=== PATIENT | male | born 2000 | race Caucasian/White ===

== ENCOUNTER 2021-05-10 16:41 | Inpatient (IN) | payer OTHER ==
[~2021-05-10] VITALS: Ht 182.9 cm; Wt 81.4 kg
[2021-05-10] MEDS ORDERED: HYDR-3363 PO (16:54)
[2021-05-10 17:33] LABS: HEMATOCRIT 43.2 % (42.0-52.0); HEMOGLOBIN 14.5 g/dl (13.5-17.5); MEAN CORPUSCULAR HEMOGLOBIN 27.4 pg (27.0-33.0); MEAN CORPUSCULAR HGB CONC 33.6 g/dl (32.0-36.5); MEAN CORPUSCULAR VOLUME 81.7 fl (80.0-96.0); PLATELET COUNT, AUTOMATED 323 10^3/uL (150-450); RED BLOOD COUNT 5.29 10^6/uL (4.30-6.10); WHITE BLOOD COUNT 12.2 10^3/uL (4.0-10.0)
[2021-05-10 18:13] LABS: ACETAMINOPHEN LEVEL < 2.0 UG/ML (10.0-30.0); ALT/SGPT 30 U/L (12-78); BILIRUBIN,DIRECT 0.1 MG/DL (0.0-0.2); BILIRUBIN,TOTAL 0.3 MG/DL (0.2-1.0); BLOOD UREA NITROGEN 11 MG/DL (7-18); CARBON DIOXIDE LEVEL 29 MEQ/L (21-32); CHLORIDE LEVEL 104 MEQ/L (98-107); CREATININE FOR GFR 0.86 MG/DL (0.70-1.30); ETHYL ALCOHOL (ETHANOL) 0.005 % (0.000-0.010); GLUCOSE, FASTING 91 MG/DL (70-100); POTASSIUM SERUM 4.3 MEQ/L (3.5-5.1); SALICYLATE LEVEL < 1.7 MG/DL (5.0-30.0); SODIUM LEVEL 138 MEQ/L (136-145)
[2021-05-10 18:43] LABS: AMPHETAMINES LEVEL URINE NEGATIVE (NEGATIVE); BARBITURATES URINE NEGATIVE (NEGATIVE); BENZODIAZEPINES URINE NEGATIVE (NEGATIVE); CANNABINOIDS URINE NEGATIVE (NEGATIVE); COCAINE METABOLITE URINE NEGATIVE (NEGATIVE); METHADONE URINE NEGATIVE (NEGATIVE); OPIATES URINE NEGATIVE (NEGATIVE); PHENCYCLIDINE URINE NEGATIVE (NEGATIVE)
[2021-05-10] MEDS ORDERED: HYDR1CAP25 PO (20:21)
[2021-05-10] MEDS ORDERED: hydrOXYzine 25 MG TAB PO PRN (22:30)
[2021-05-10] MEDS ORDERED: ACETAMINOPHEN TAB 650MG DOSE (2X325MG) PO PRN (22:30)
[2021-05-10] MEDS ORDERED: MOM 30ML SUSPENSION UDC PO PRN (22:30)
[2021-05-10] MEDS ORDERED: MAALOX 30 ML SUSP *UDC PO PRN (22:30)
[2021-05-10] MEDS ORDERED: traZODone 50 MG TAB PO PRN (22:30)
[2021-05-10 23:06] VITALS: BP 124/60
[2021-05-11 06:00] VITALS: BP 132/60
[2021-05-11] MEDS: NICOTINE 21MG/24HR 1 EA TRANSDERMAL TD SCH (09:00)
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
--- NOTE | 2021-05-11 12:46 | HPEPDOC ---
General Date of Admission May 10, 2021 at 16:42 Date of Service: May 11, 2021 Chief Complaint The patient is a 20-year-old male admitted with a reason for visit of Unspecified Mood Disorder. 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 He is being examined today for medical history and physical. He had recent COVID infection and came off quarantine today. He complains of some cough and sore throat and feels some heaviness of breathing when doing physical exertion which alll started with the COVID infection but says is slowly getting better. Home Medications Scheduled PRN Hydroxyzine Pamoate (Hydroxyzine Pamoate) 25 Mg Capsule, 25 MG PO QHS PRN for ANXIETY, (Reported) Allergies Coded Allergies: No Known Allergies (Unverified , 05/10/21) Past Medical History Medical History Recent COVID infection on 05/01/21 Surgical History wisdom tooth extraction Family History Patient is adapted. Social History * Smoker: other (vape) Alcohol: Denies Drugs: denies A-FIB/CHADSVASC A-FIB History Current/History of A-Fib/PAF?: No Age/Risk Factor Scoring CHADSVASC: CHADSVASC Response (Comments) Value Gender Risk Factor Male 0 Hx of CHF No 0 Hx of HTN No 0 Hx of Stroke/TIA/or VTE No 0 Hx of Diabetes No 0 Hx of Vascular Disease No 0 Total 0 Review of Systems Constitutional: Denies: Chills, Fever, Night Sweats Eyes: Denies: Pain, Vision change ENT: Denies: Head Aches, Ear Pain, Dysphagia Skin: Denies: Rash, Lesions, Breakdown Pulmonary: Reports: Dyspnea, Cough Cardiovascular: Denies: Chest Pain, Palpitations, Orthopnea, Paroxysmal Noc. Dyspnea, Lt Headedness Gastrointestinal: Denies: Nausea, Vomiting, Abdominal Pain, Diarrhea Genitourinary: Denies: Dysuria, Frequency, Incontinence, Retention Hematologic: Denies: Bruising, Bleeding Excessively Physical Examination General Exam: Positive: Alert, Cooperative, No Acute Distress Eye Exam: Positive: PERRLA, Conjunctiva & lids normal, EOMI; Negative: Sclera icteric ENT Exam: Positive: Atraumatic, Mucous membr. moist/pink, Pharynx Normal Neck Exam: Positive: Supple; Negative: JVD, thyromegaly Chest Exam: Positive: Clear to auscultation, Normal air movement Heart Exam: Positive: Rate Normal, Regular Rhythm, Normal S1, Normal S2; Negative: Murmurs, Rubs Abdomen Exam: Positive: Normal bowel sounds, Soft; Negative: Tenderness, Hepatospenomegaly Extremity Exam: Positive: Normal pulses; Negative: Clubbing, Cyanosis, Edema Vital Signs Vital Signs Date Time Temp Pulse Resp B/P (MAP) Pulse Ox O2 Delivery O2 Flow Rate FiO2 05/11/21 06:00 97.7 95 18 132/60 (84) 97 05/10/21 23:06 Room Air Laboratory Data Labs 24H Laboratory Tests 2 05/10/21 17:22: Nucleated Red Blood Cells % (auto) 0.0, Anion Gap 5L, Calcium Level 9.0, Total Bilirubin 0.3, Direct Bilirubin 0.1, Aspartate Amino Transf (AST/SGOT) 25, Alanine Aminotransferase (ALT/SGPT) 30, Alkaline Phosphatase 116, Total Protein 8.0, Albumin 4.0, Albumin/Globulin Ratio 1.0, Thyroid Stimulating Hormone (TSH) 2.660, Salicylates Level < 1.7L, Acetaminophen Level < 2.0L, Ethyl Alcohol Level 0.005 05/10/21 17:57: Urine Opiates Screen NEGATIVE, Urine Methadone Screen NEGATIVE, Urine Barbiturates Screen NEGATIVE, Urine Phencyclidine Screen NEGATIVE, Urine Ampheta mines Screen NEGATIVE, Urine Benzodiazepines Screen NEGATIVE, Urine Cocaine Metabolite Screen NEGATIVE, Urine Cannabinoids Screen NEGATIVE CBC/BMP Laboratory Tests 05/10/21 17:22 Assessment/Plan 20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 He is being examined today for medical history and physical. Psychotic disorder as per Psychiatrist Recent COVID infection off quarantine No resp signs seen though still feels symptomatically dyspneic. No hypoxia. No active medical issues at this time. Plan / VTE VTE Prophylaxis Ordered?: No (Freely ambulatory) MIRELLA GARCIA MD May 11, 2021 12:46
[2021-05-11 16:02] VITALS: BP 138/87
[2021-05-11] MEDS: traZODone 50 MG TAB PO SCH (20:09)
[2021-05-12 06:10] VITALS: BP 138/82
[2021-05-12] MEDS: NICOTINE 21MG/24HR 1 EA TRANSDERMAL TD SCH (08:11)
[2021-05-12 16:33] VITALS: BP 134/90
[2021-05-12] MEDS: traZODone 50 MG TAB PO SCH (21:01)
[2021-05-13 06:20] VITALS: BP 121/60
[2021-05-13] MEDS: NICOTINE 21MG/24HR 1 EA TRANSDERMAL TD SCH (09:04)
[2021-05-13 16:45] VITALS: BP 139/80
[2021-05-13] MEDS: traZODone 50 MG TAB PO SCH (21:47)
[2021-05-14 07:04] VITALS: BP 150/99
--- NOTE | 2021-05-14 08:51 | MHIPN ---
[facility] PROGRESS NOTE DATE: 05/12/2021 VITAL SIGNS: Blood pressure 138/82, pulse 83, temperature 98.9. This is a video assessment, I am at home, he is at the inpatient psychiatry unit, he is seen in the presence of staff. CHIEF COMPLAINT: Feels a bit better. SUBJECTIVE: Seen for followup. Indicates has been feeling a bit better, and feels somewhat more rested, says sleep is improving. Appetite is okay. Moods are a bit improved, less anxious, less depressed. Spoke about what he has been experiencing, particularly since he found out that his grandmother, who he was very close to, was ill, this November, and she in January, was in her mid 80s, this was followed by the patient's 17-year-old sister getting in her car accident. Things have been increasingly difficult for him, but feels is getting better. MENTAL STATUS EXAMINATION: Neat, cooperative, no agitation, no psychomotor retardation, he is coherent, affect is fairly broad, denies any suicidal thoughts or intents, no homicidal ideals or intents, currently no evidence of any psychosis, cognition is grossly intact, judgment and insight possibly somewhat improved. ASSESSMENT: Adjustment disorder with anxiety and depression. The differential would tend to include a depressive disorder, given the length of time as well. PLAN: Continue current care, and agree on holding off on advocating for an antidepressant. The need, at this point, is not imperative, and this can always be reassessed. He is to be encouraged to participate in activities in the unit. Further recommendations will be made depending on the clinical picture.
[2021-05-14] MEDS: NICOTINE 21MG/24HR 1 EA TRANSDERMAL TD SCH (09:00)
--- NOTE | 2021-05-14 10:52 | MHIPN ---
[facility] PROGRESS NOTE DATE: 05/13/2021 VITAL SIGNS: Blood pressure 121/60, pulse 64, temperature 97.9. This is a video assessment, he is at the hospital, he is seen in the presence of staff, I am at home. CHIEF COMPLAINT: Says feels better. SUBJECTIVE: Seen for followup. Indicates has been feeling better, and that he slept well. Moods are improved, he feels less anxious. Appetite is okay. MENTAL STATUS EXAMINATION: Neat, cooperative, no agitation, no psychomotor retardation, he is coherent, affect reactive, appears mildly anxious. He denies any thoughts of harming himself or anyone else, no evidence of any psychosis. Cognition grossly intact, his judgment and insight are improved. ASSESSMENT: Other specified depressive disorder versus adjustment disorder with depressed mood. PLAN: Continue current care, observations, will hold off on any scheduled psychotropic, such as an antidepressant. Encourage participation in activities in the unit. He inquired about attending outpatient care at the [facility], and I would suggest that that is explored through [facility]. [facility] Outpatient has seen active duty personnel in the past, I am not sure of its current status, but that can certainly be explored. He will be seeing the assigned clinicians tomorrow.
--- NOTE | 2021-05-14 11:07 | MHDSPDOC ---
[facility] Discharge Summary Discharge Summary DATE OF ADMISSION: May 10, 2021 at 16:42 DATE OF DISCHARGE: 05/14/2021 DISCHARGE DIAGNOSES: 1. . Adjustment disorder with the mixed emotion 2. . REASON FOR ADMISSION: 20-year-old, , admitted due to increasing depression following recent deaths of her grandmother and sister. Patient reports being preoccupied with the images of all the time and was feeling quite anxious, depressed, but denied any suicidal thoughts. CONSULTANTS INVOLVED: TREATMENT AND PROGRESS ON THE UNIT : Patient was seen for supportive therapy and lethality evaluation and no psychotropic medications were started. Patient appeared to be going through some grief reaction, but denied any history of a serious depression or mara and denies any suicidal thoughts.. HOSPITAL COURSE: The patient has responded well to the supportive therapy and showed rapid improvement. He is not preoccupied with the images anymore and he was sleeping much better and was able to rest and maintained good control. He denies any serious symptoms of depression and denies any thoughts of suicide but is willing to accept outpatient follow-up, especially dealing with his grief. DISCHARGE ASSESSMENT: Much improved, stable, and no suicide MENTAL STATUS EXAMINATION ON DISCHARGE: Patient is a 20 -year old male, who is , cooperative and in no acute distress. Speech is rational, coherent. Language skills are good. Thought processes including: Well organized . Thought content: No suicidal thoughts . Abstract reasoning, and computation: Good. Description of associations: Relevant and coherent. Description of abnormal or psychotic thoughts: None. Judgment: Good. Insight: [Good. Orientation to , well oriented. Recent and remote memory: not impaired. Attention span and concentration: . Language: . Fund of knowledge: . Mood: Only mildly anxious . Affect: , Appropriate. MEDICATIONS ON DISCHARGE: - for ., No psychotropic medicine - for . - for . PLAN/FOLLOWUP ARRANGEMENTS: Arranged by the conservation planner. The amount of time spent in the coordination of care for this patient was approximately 35 minutes. ETOH/Disorder Med Rx ETOH/DRUG DISORDER RX: N/A Vital Signs/I&Os Vital Signs Date Time Temp Pulse Resp B/P (MAP) Pulse Ox O2 Delivery O2 Flow Rate FiO2 05/14/21 07:04 98.3 78 20 150/99 (116) 98 Room Air Medications No Active Prescriptions or Reported Meds Allergies Coded Allergies: No Known Allergies (Unverified , 05/10/21) TAMIA GARZA M.D. May 14, 2021 11:07
== END 2021-05-14 11:24 | disposition home or self-care (01) | DRG 882 ==
LOC: M ED 16:41 → M ED INP 16:42 → M PSY 23:03
PROVIDERS: ADMIT Psychiatry & Neurology Psychiatry; ATTEND Psychiatry & Neurology Psychiatry
DX: F43.25 Adjustment disorder with mixed disturbance of emotions and conduct (principal); Z86.16 Personal history of COVID-19; F17.290 Nicotine dependence, other tobacco product, uncomplicated; Z79.899 Other long term (current) drug therapy

== ENCOUNTER 2021-09-03 18:18 | Emergency (ER) | payer OTHER ==
[~2021-09-03] VITALS: Ht 182.9 cm; Wt 90.5 kg
[2021-09-03 18:18] VITALS: BP 143/88
[~2021-09-03 18:18] MED LIST: HYDR-3363 PO; HYDR1CAP25 PO
--- OUTSIDE RECORDS SUMMARY | 2021-09-03 18:26 | CCD ---
Author Author [facility] Organization [facility] Address Unknown Phone Unavailable Care Team Providers Care Personal Fitness Manager Name Role Phone Dev Gomez MD Unavailable Unavailable Dev Gomez MD Unavailable Unavailable Dev Gomez MD Unavailable Unavailable Dev Gomez MD Unavailable Unavailable Dev Gomez MD Unavailable Unavailable Dev Gomez MD Unavailable Unavailable [facility] Unavailable Unavailable Re-disclosure Warning The records that you are about to access may contain information from federally-assisted alcohol or drug abuse programs. If such information is present, then the following federally mandated warning applies: This information has been disclosed to you from records protected by federal confidentiality rules (42 CFR part 2). The federal rules prohibit you from making any further disclosure of this information unless further disclosure is expressly permitted by the written consent of the person to whom it pertains or as otherwise permitted by 42 CFR part 2. A general authorization for the release of medical or other information is NOT sufficient for this purpose. The Federal rules restrict any use of the information to criminally investigate or prosecute any alcohol or drug abuse patient.The records that you are about to access may contain highly sensitive health information, the redisclosure of which is protected by Article 27-F of the [place] State Public Health law. If you continue you may have access to information: Regarding HIV / AIDS; Provided by facilities licensed or operated by the [facility] of Mental Health; or Provided by the [facility] for People With Developmental Disabilities. If such information is present, then the following [facility] mandated warning applies: This information has been disclosed to you from confidential records which are protected by state law. State law prohibits you from making any further disclosure of this information without the specific written consent of the person to whom it pertains, or as otherwise permitted by law. Any unauthorized further disclosure in violation of state law may result in a fine or longterm sentence or both. A general authorization for the release of medical or other information is NOT sufficient authorization for further disc losure. Encounters Encounter Providers Location Date Indications Data Source(s ) Emergency Attender: Dev Jason MDConsultant: [facility] 03/13/2021 12:33:00 PM EDT - 03/13/2021 01:17:00 PM EDT [facility] Patient discharged. Medications No Information Insurance Providers Payer name Policy type / Coverage type Policy ID Covered republican ID Covered republican's relationship to dobson Policy Dobson Plan Information [facility] [employer] [id number] SP [id number] [facility] HUMANA - O/P [id number] 18 [id number] Problems, Conditions, and Diagnoses Code Display Name Description Problem Type Effective Dates Data Source(s) F410 Panic disorder [episodic paroxysmal anxi ety] Panic disorder [episodic paroxysmal anxiety] Diagnosis 03/13/2021 12:33:00 PM EDT [facility] R064 Hyperventilation Hyperventilation Diagnosis 03/13/2021 12 :33:00 PM EDT [facility] R0600 Dyspnea, unspecified Dyspnea, unspecified Diagnosis 03/13/2021 12:33:00 PM EDT [facility] Surgeries/Procedures No Information Results ID Date Data Source [id number] 03/13/2021 12:33:00 PM EDT [facility] 1 OrderSheet [facility] Emergency Department [address] [place] [address] Phone #: ext- [phone] 03/13/2021 12:33 Patient: ZAIRE FERGUSON Sex: M : 2000 Age: 20yWEIGHT:72.5 kg (S) HEIGHT:72 inches (S) BMI:21.7ALLERGIES: NoneCHIEF COMPLAINT: dyspnea, chest painDIAGNOSIS: Hyperventilation, Panic attackLAB ORDERSOrder Description Priority Entered Acknowledged InitialedUrinalysis (Clean STAT 12:55 03/13/2021 12:55 Piper Werner) Marlys Werner RN; Marlys GARCIA Per protocol; Jorge Reyesta PADIAGNOSTIC STUDY ORDERSOrder Description Priority Entered Acknowledged InitialedMEDICATION/IV/DRIP/FLUID ORDERSOrder Description Priority E ntered Acknowledged InitialedGENERAL ORDERSOrder Description Priority Entered Acknowledged Initialed[Electronically signed by David Mcneil R.N. (13:17 03/13/2021)][Electronically signed by Dev Gomez (14:39 03/13/2021)][Electronically locked by David Mcneil R.N. (13:17 03/13/2021)] Name Value Range Interpretation Code Description Data Krys rce(s) Supporting Document(s) ID Date Data Source [id number] 03/13/2021 12:33:00 PM EDT [facility] 1 Medication Reconciliation Report [facility] Emergency Department [address] [place] [address] Phone #: ext- [phone] 03/13/2021 12:33 Patient: ZAIRE FERGUSON Sex: M : 2000 Age: 20yWeight: 72.5 kgHeight/Length: 72 in.BMI: 21.7ALLERGIES: NoneThe patient's Home Medications are listed below:NONE.The source(s) of the original Home Medication information:Not obtained.The following Medications were given to the patient in the Emergency Department:None.The following Medications were prescribed to the patient:None. Name Value Range Interpretation Code Description Data Krys rce(s) Supporting Document(s) ID Date Data Source [id number] 03/13/2021 12:33:00 PM EDT [facility] 1 Medication Administration Record [facility] Emergency Department [address] [place] [address] Phone #: ext- [phone] 03/13/2021 12:33 Patient: ZAIRE FERGUSON Sex: M : 2000 Age: 20yWeight: 72.5 kgHeight/Length: 72 inBMI: 21.7ALLERGIES: NoneDate/Time Medication Administered Medication Ordered Name Value Range Interpretation Code Description Data Krys rce(s) Supporting Document(s) ID Date Data Source [id number] 03/13/2021 12:33:00 PM EDT [facility] 1 General Instructions [facility] Emergency Department [address] [place] [address] Phone #: [phone]- [phone] 03/13/2021 12:33 Patient: ZAIRE FERGUSON Sex: M : 2000 Age: 20y Acute hyperventilation syndrome Panic attackINSTRUCTIONS Warnings: GENERAL WARNINGS: Return or contact your physician immediately if your condition worsens or changes unexpectedly, if not improving as expected, or if other problems arise. Understanding of the discharge instructions verbalized by patient. Follow-up with: [facility] Respective Team Haresh [place], , , [address], , [place], [address] Follow up in two days if not better. ADDITIONAL INFORMATIONAnxiety ReactionAnxiety is the feeling we all get when we think something bad might happen. It is a normal responseto stress and usually causes only a mild reaction. When anxiety becomes more severe, itcan interfere with daily life. In some cases, you may not even be aware of what it is you're anxiousabout. There may also be a genetic link or it may be a learned behavior in the home.Both psychological and physical triggers cause stress reaction. It's often a response to fear oremotional stress, real or imagined. This stress may come from home, family, work, or socialrelationships.During an anxiety reaction, you may feel: Helpless Nervous Depressed IrritableYour body may show signs of anxiety in many ways. You may experience: 2 General Instructions [facility] Emergency Department [address] [place] [address] Phone #: ext- [phone] 03/13/2021 12:33 Patient: ZAIRE FERGUSON Sex: M : 2000 Age: 20y Dry mouth Shakiness Dizziness Weakness Trouble breathing Breathing fast (hyperventilating) Chest pressure Sweating Headache Nausea Diarrhea Tiredness Inability to sleep Sexual problemsHome care Try to locate the sources of stress in your life. They may not be obvious. These may include: o Daily hassles of life (such as traffic jams, missed appointments, or car troubles) o Major life changes, both good (new baby or job promotion) and bad (loss of job or loss of loved one) o Overload: feeling that you have too many responsibilities and can't take care of all of them at once o Feeling helpless or feeling that your problems are beyond what you're able to solve Notice how your body reacts to stress. Learn to listen to your body signals. This will help you take action before the stress becomes severe. When you can, do something about the source of your stress. (Avoid hassles, limit the amount of change that happens in your life at one time and take a break when you feel overloaded). Unfortunately, many stressful situations can't be avoided. It is necessary to learn how to 3 General Instructions [facility] Emergency Department [address] [place] [address] Phone #: ext- [phone] 03/13/2021 12:33 Patient: ZAIRE FERGUSON Sex: M : 2000 Age: 20y better manage stress. There are many proven methods that will reduce your anxiety. These include simple things like exercise, good nutrition, and adequate rest. Also, there are certain techniques that are helpful: o Relaxation o Breathing exercises o Visualization o Biofeedback o MeditationFor more information about this, consult your healthcare provider or go to a local bookstore andreview the many books and tapes available on this subject.Follow-up careIf you feel that your anxiety is not responding to self- help measures, contact your healthcare provideror make an appointment with a counselor. You may need short-term psychological counseling andtemporary medicine to help you manage stress.Call [phone] if any of these happen: Trouble breathing Confusion Drowsiness or trouble wakening Fainting or loss of consciousness Rapid heart rate Seizure New chest pain that becomes more severe, lasts longer, or spreads into your shoulder, arm, neck, jaw, or backWhen to seek medical adviceCall your healthcare provider right away if any of these happen: Your symptoms get worse Severe headache not relieved by rest and mild pain reliever 4 General Instructions [facility] Emergency Department [address] [place] [address] Phone #: ext- [phone] 03/13/2021 12:33 Patient: ZAIRE FERGUSON Sex: M : 2000 Age: 20y [id number] [employer] [place] [address], [place] [id number]. All rights reserved. This information is not intended as asubstitute for professional medical care. Always follow your healthcare professional's instructions.Panic AttackA panic attack is an extreme fear reaction that comes on for no clear reason. There is often a fearthat something terrible will happen or that you may . The attack may last a few minutes up to a fewhours. Between attacks, things will seem quite normal. This condition has a psychological cause andcan be treated with the help of a therapist or psychiatrist. Medicine can be very helpful for thisproblem.Panic attacks usually come on suddenly, reaches a peak within minutes, and includes at least 4 ofthese symptoms: Palpitations, pounding heart, or accelerated heart rate Sweating Chills or heat sensations Trembling or shaking Sensations of shortness of breath or smothering Feelings of choking Chest pain or discomfort Nausea or abdominal distress Feeling dizzy, unsteady, light-headed, or faint Numbness or tingling sensations Fear of dying Fear of going crazy or of losing control Feelings of unreality, strangeness, or detachment from the environmentMany of these symptoms can be linked to physical problems, so it is sometimes necessary to rule outconditions like thyroid disorders, heart disease, gastrointestinal problems, and others. They can alsostart as physical symptoms, but psychologically we may react to them in a fearful way, worsening theway we react and feel.Home care Try to find the sources of stress in your life. They may not be obvious. These may include: 5 General Instructions [facility] Department [address] [place] [address] Phone #: ext- [phone] 03/13/2021 12:33 Patient: ZAIRE FERGUSON Sex: M : 2000 Age: 20y o Daily hassles of life which pile up (traffic jams, missed appointments, car troubles). o Major life changes, both good (new baby, job promotion) and bad (loss of job, loss of loved one). o Feeling that you have too many responsibilities and can't take care of everything at once. o Helplessness: feeling like your problems are too much for you to handle. Notice how your body reacts to stress. Learn to listen to your body signals so that you can take action before the stress becomes severe. Try to be aware of what you were doing before the reaction started; this may give you clues to things that can trigger a reaction. It may be situations in your life, or what you were doing at the time. When possible, avoid or reduce the cause of stress. Avoid hassles, limit the amount of change that is happening in your life at one time or take a break when you feel overloaded. Unfortunately, you can't stay away from many stressful situations. So you need to learn how to manage stress better. Many proven methods will reduce your anxiety. These include simple things like exercise, good nutrition, and adequate rest. Also, there are certain techniques that are helpful: relaxation and breathing exercises, visualization, biofeedback, meditation, or simply taking time-out to clear your mind. For more information about this, ask your doctor or go to a local bookstore and review the many books and tapes available on this subject.Follow- up careFollow-up with your healthcare provider, or as advised.Call [phone] if you: Have suicidal thoughts, a suicide plan, and the means to carry out the plan Have serious thoughts of hurting someone else Have trouble breathing Are very confused Feel very drowsy or have trouble awakening Faint or lose consciousness Have new chest pain that becomes more severe, lasts longer, or spreads into your shoulder, 6 General Instructions [facility] Department [address] [place] [address] Phone #: ext- [phone] 03/13/2021 12:33 Patient: ZAIRE FERGUSON Sex: M : 2000 Age: 20y arm, neck, jaw, or back Have a very rapid or irregular heartbeat Have a seizureWhen to seek medical adviceCall your healthcare provider right away if any of these occur: Worsening of your symptoms to the point of feeling [id number] Feeling that you may try to harm yourself or another Can't sleep or eat for 3 days in a row Increased pain with breathing Increasing feeling of weakness or dizziness Cough with dark colored sputum (phlegm) or blood Fever of 100.4F (38C) or higher, or as directed by your healthcare provider Swelling, pain, or redness in one leg Requests by family or friends for you to seek help for your symptoms [employer]. [address] [place] [address]. All rights reserved. This information is not intended as asubstitute for professional medical care. Always follow your healthcare professional's instructions. You have been given the following additional information: Anxiety Reaction Panic Attack(Electronically signed by Dev Gomez 03/13/2021 14:39) Name Value Range Interpretation Code Description Data Krys rce(s) Supporting Document(s) ID Date Data Source [id number] 03/13/2021 12:33:00 PM EDT [facility] 1 Clinical Report - Nurses [facility] Emergency Department [address] [place] [address] Phone #: ext- [phone] 03/13/2021 12:33 Patient: ZAIRE FERGUSON Sex: M : 2000 Age: 20yTRIAGEHistorian: patient.Acuity: LEVEL 4.Chief Complaint: ANXIETY.( Had anxiety attack while in field s and s of hyperventaltion prior to arraival.. NAD on arrival). --12: David Mcneil R.N.12:34 03/13/21. BP: 133/6. MAP: 48. HR: 77. RR: 18. O2 saturation: 97%. Temp: 99.1 F. Pain level now:0/10. --12:37 03/13/21 Micanopy, David, R.N.Weight: 72.5 kg stated. Height/Length: 72 inches Per Patient. BMI: 21.7. --12:36 03/13/21 David Mcneil R.N.MedicationsNone. --12:35 03/13/21 David Mcneil R.N.AllergiesNone. --12:36 03/13/21 David Mcneil R.N.HistoryPAST MEDICAL HX: Negative. Immunizations: up-to-date.SURGERY HX: No history of previous surgery.SOCIAL HX: Never smoker. No alcohol use or drug use. He was offered HIV testing but declined andhepatitis C testing but declined. He has not traveled outside the [place]Infectious disease exposure: No infectious disease exposure.SELF HARM ASSESSMENT: Self harm assessment was performed. The patient answered "no" to thequestion(s) "Have you recently felt down, depressed, or hopeless?" and "Do you have thoughts of harmingor killing yourself?".ABUSE ASSESSMENT: Abuse assessment. No report of abuse.NUTRITIONAL RISK ASSESSMENT: The nutritional risk assessment revealed no deficiencies.FUNCTIONAL ASSESSMENT: Functional assessment: no impairments noted.LEARNING NEEDS ASSESSMENT: The learning needs assessment revealed no barriers. 2 Clinical Report - Nurses [facility] Emergency Department [address] [place] [address] Phone #: ext- [phone] 03/13/2021 12:33 Patient: ZAIRE FERGUSON Sex: M : 2000 Age: 20y FALL RISK ASSESSMENT: Fall risk assessment completed. No risk factors identified. SKIN INTEGRITY ASSESSMENT: Skin integrity risk assessment completed. No skin integrity risk identified. --12:37 03/13/21 David Mcneil R.N. FAMILY HX: No significant family medical history. --13:18 03/13/21 Dev Gomez.NURSING PROGRESS NOTES12:57 03/13/21. BP: 136/85. MAP: 102. HR: 70. RR: 16. O2 saturation: 99%. --12:58 4/27/21 [facility], ER Tech1 Side rails up. Bed placed in lowest position. --13:17 03/13/21 David Mcneil R.N.DISPOSITION / DISCHARGE 13:14 03/13/21. BP: 127/85. MAP: 99. HR: 83. RR: 16. O2 saturation: 99%. Temp: 98.1 F. Pain level now: 11/26. 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 Discharge instructions provided and reviewed with the patient. Patient verbalized understanding. Written instructions provided in Dominican. The patient was discharged by the physician. He was discharged home. He left ambulatory and via private vehicle. Patient driving. --13:17 03/13/21 David Mcneil R.N. Departure time: 13:17 03/13/2021. --13:17 03/13/21 David Mcneil R.N.Locked/Released at 03/13/2021 13:17 by David Mcneil R.N. Name Value Range Interpretation Code Description Data Krys rce(s) Supporting Document(s) ID Date Data Source [id number] 03/13/2021 12:33:00 PM EDT [facility] 1 Clinical Report - Physicians/Mid Levels [facility] Emergency Department [address] [place] [address] Phone #: ext- [phone] 03/13/2021 12:33 Patient: ZAIRE FERGUSON Sex: M : 2000 Age: 20y Time Seen: 13:04 03/13/2021. Arrived- By private vehicle. Historian- patient.HISTORY OF PRESENT ILLNESS Chief Complaint: DYSPNEA and CHEST PAIN. This started just prior to arrival and is still present (better). It was abrupt in onset. The dyspnea is described as moderate. (anxious). The patient has had numbness. No cough, sputum production, fever, sweating episodes or wheezing. No chills, dyspnea on exertion, chest pain or discomfort or calf pain. No foot swelling or dizziness. The patient has had anxiety, tingling, and palpitations. (Patient thinks he had a panic attack. Suddenly felt sob, chest tightness, tingling to his hands, face and feet. 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 Symptoms all resolved now). Similar symptoms previously. Patient has had similar symptoms once. Recent medical care: Not recently seen/assessed.REVIEW OF SYSTEMSNo muscle aches or aches, eye irritation, sore throat or nasal discharge. No vomiting, abdominal pain,headache, fainting episodes or blurred vision. No excessive urination, joint pain, tinnitus or vomiting. Thepatient has had anxiety. All other systems reviewed and are negative.PAST HISTORYSee nurses notes. No history of asthma. Problems: no known problems. Surgeries: No history of previous surgery. Additional Surgeries: no known surgeries. Medications: None. Allergies: None.SOCIAL HISTORYNever smoker. No alcohol use. 2 Clinical Report - Physicians/Mid Levels [facility] Emergency Department [address] [place] [address] Phone #: ext- [phone] 03/13/2021 12:33 Patient: ZAIRE FERGUSON Sex: M : 2000 Age: 20yFAMILY HISTORYNo significant family medical history.ADDITIONAL NOTESThe nursing notes have been reviewed.PHYSICAL EXAMVital Signs: 03/13/2021 12:34 BP: 133/6. MAP: 48. HR: 77. RR: 18. O2 saturation: 97%. Temp: 99.1 F.Pain level now: 0/10.Appearance: Alert. No acute distress.Eyes: Pupils equal, round and reactive to light. Eyes normal inspection.ENT: Ears normal. Nose normal. Pharynx normal.Neck: Normal inspection. No jugular venous distention. Neck supple.CVS: Normal heart rate and rhythm. Heart sounds normal.Respiratory: No respiratory distress. Painless inspiration.Abdomen: Soft and nontender.Back: Normal inspection.Skin: Skin warm and dry. Normal skin color . No rash. Normal skin turgor.Extremities: Extremities exhibit normal ROM. No lower extremity edema.Neuro: Oriented X 3. No motor deficit. No sensory deficit.PROGRESS AND PROCEDURESCourse of Care: 13:11 03/13/21. All his symptoms have resolved. Patient has stable vital signs.Complaints suggestive of hyperventilation. Patient understands this was due to panic attack. Disposition: Discharged. Condition: stable.CLINICAL IMPRESSION Acute hyperventilation syndrome Panic attackINSTRUCTIONS Warnings: GENERAL WARNINGS: Return or contact your physician immediately if your condition worsens or changes unexpectedly, if not improving as expected, or if other problems arise. Understanding of the discharge instructions verbalized by patient. Follow-up with: [facility] Respective Team [facility] Lidya [place], , , [id number] [facility] [address], , [place], [address] 3 Clinical Report - Physicians/Mid Levels [facility] Emergency Department [address] [place] [address] Phone #: ext- [phone] 03/13/2021 12:33 Patient: ZAIRE FERGUSON Sex: M : 2000 Age: 20y Follow up in two days if not better.(Electronically signed by Dev Gomez 03/13/2021 14:39) Name Value Range Interpretation Code Description Data Krys rce(s) Supporting Document(s) ID Date Data Source [id number] 03/13/2021 01:10:00 PM EDT [facility] Name Value Range Interpretation Code Description Data Krys rce(s) Supporting Document(s) URINALYSIS [facility] URINALYSIS SOURCE R [facility] COLOR yellow NORMAL: Yellow [facility]ital CLARITY clear NORMAL: Clear [facility] Specific gravity of Urine by Test strip 1.015 1.001 - 1.030 [facility] 8 5 - [facility] Gl[facility] [Mass/volume] in Urine by Test strip NORM N[facility]AL: [facility] Bilirubin.total [Presence] in Urine by Test strip NEG NORMAL: Negative [facility] Ketones [Presence] in Urine by Test strip NEG NORMAL: Negative [facility] Protein [Mass/volume] in Urine by Test strip NEG NORMAL: Negat [facility] Nitrite [Presence] in Urine by Test strip NEG NORMAL: Negative [facility] BLOOD NEG NORMAL: Negative [facility] Leukocyte esterase [Presence] in Urine by Test strip NEG SANTHOSH L: Negative [facility] Urobilinogen [Mass/volume] in Urine by Test strip NOR less manfred n 1.0 mg/dL [facility] MICROSCOPIC Not Indicate [facility] Procedure Social History No Information
--- OUTSIDE RECORDS SUMMARY | 2021-09-03 20:48 | CCD ---
Author Author [facility] Organization [facility] Address Unknown Phone Unavailable Care Team Providers Care Lion Hunter Name Role Phone Dev Gomez MD Unavailable Unavailable Dve Gomez MD Unavailable Unavailable Dev Gomez MD Unavailable Unavailable Dev Gomez MD Unavailable Unavailable Dev Gomez MD Unavailable Unavailable Dev Gomez MD Unavailable Unavailable [facility] Unavailable Unavailable Re-disclosure Warning The records [...] is protected by Article 27-F of the [place] Public Health law. If you continue you may have access to information: Regarding HIV / AIDS; Provided by facilities licensed or operated by the [facility] Office of Mental Health; or Provided by the [facility] Office for People With Developmental Disabilities. If such information is present, then the following [facility] mandated warning applies: This information has been [...] law may result in a fine or chcf sentence or both. A general authorization for the release of medical or other information is NOT sufficient authorization for further disc losure. Encounters Encounter Providers Location Date Indications Data Source(s ) Emergency Attender: Dev Jason MDConsultant: [facility] 03/13/2021 12:33:00 PM EDT - 03/13/2021 01:17:00 PM EDT [facility] Patient discharged. Medications No Information Insurance Providers Payer name Policy type / Coverage type Policy ID Covered republican ID Covered republican's relationship to dobson Policy Dobson Plan Information [facility] [employer] [id number] SP [id number] [facility] [employer] - O/P [id number] 18 [id number] Problems, Conditions, and Diagnoses Code Display Name Description Problem Type Effective Dates Data Source(s) F410 Panic disorder [episodic paroxysmal anxi ety] Panic disorder [episodic paroxysmal anxiety] Diagnosis 03/13/2021 12:33:00 PM EDT [facility] R064 Hyperventilation Hyperventilation Diagnosis 03/13/2021 12 :33:00 PM EDT [facility] R0600 Dyspnea, unspecified Dyspnea, unspecified Diagnosis 03/13/2021 12:33:00 PM EDT [facility] Surgeries/Procedures No Information Results ID Date Data Source [id number] 03/13/2021 12:33:00 PM EDT [facility] 1 OrderSheet [facility] Emergency Department [address] [place] [address] Phone #: ext- [phone] 03/13/2021 12:33 Patient: [...] rce(s) Supporting Document(s) ID Date Data Source [id number] 03/13/2021 12:33:00 PM EDT [facility] 1 Medication Reconciliation Report [facility] Emergency Department [address] [place] [address] Phone #: ext- [phone] 03/13/2021 12:33 Patient: [...] rce(s) Supporting Document(s) ID Date Data Source [id number] 03/13/2021 12:33:00 PM EDT [facility] 1 Medication Administration Record [facility] Emergency Department [address] [place] [address] Phone #: ext- [phone] 03/13/2021 12:33 Patient: ZAIRE FERGUSON Sex: M : 2000 Age: 20yWeight: 72.5 kgHeight/Length: 72 inBMI: 21.7ALLERGIES: NoneDate/Time Medication Administered Medication Ordered Name Value Range Interpretation Code Description Data Krys rce(s) Supporting Document(s) ID Date Data Source [id number] 03/13/2021 12:33:00 PM EDT [facility] 1 General Instructions [facility] Emergency Department [address] [place] [address] Phone #: usu- [phone] 03/13/2021 12:33 Patient: ZAIRE FERGUSON Sex: M : 2000 Age: 20y Acute hyperventilation syndrome Panic attackINSTRUCTIONS Warnings: GENERAL WARNINGS: Return or contact your physician immediately if your condition worsens or changes unexpectedly, if not improving as expected, or if other problems arise. Understanding of the discharge instructions verbalized by patient. Follow-up with: [facility] Respective Team [place], , , [address], , [place], [address] Follow up in two days if not [...] ways. You may experience: 2 General Instructions [facility] Emergency Department [address] [place] [address] Phone #: ext- [phone] 03/13/2021 12:33 Patient: [...] to learn how to 3 General Instructions [facility] Emergency Department [address] [place] [address] Phone #: ext- [phone] 03/13/2021 12:33 Patient: [...] andtemporary medicine to help you manage stress.Call [phone] [phone] if any of these happen: Trouble breathing [...] and mild pain reliever 4 General Instructions [facility] Emergency Department [address] [place] [address] Phone #: ext- [phone] 03/13/2021 12:33 Patient: ZAIRE FERGUSON Sex: M : 2000 Age: 20y [phone] [employer]. [address] [place] [address], [place] [id number]. All rights reserved. This information is not [...] obvious. These may include: 5 General Instructions [facility] Emergency Department [address] [place] [address] Phone #: ext- [phone] 03/13/2021 12:33 Patient: [...] with your healthcare provider, or as advised.Call [phone] if you: Have suicidal thoughts, a suicide plan, and the means to carry out the plan Have serious thoughts of hurting someone else Have trouble breathing Are very confused Feel very drowsy or have trouble awakening Faint or lose consciousness Have new chest pain that becomes more severe, lasts longer, or spreads into your shoulder, 6 General Instructions [facility] Emergency Department [address] [place] [address] Phone #: ext- [phone] 03/13/2021 12:33 Patient: ZAIRE FERGUSON Sex: M : 2000 Age: 20y arm, neck, jaw, or back Have a very rapid or irregular heartbeat Have a seizureWhen to seek medical adviceCall your healthcare provider right away if any of these occur: Worsening of your symptoms to the point of feeling [id number] Feeling that you may try to harm [...] you to seek help for your symptoms [employer]. [address] [place] [address]. All rights reserved. This information is not intended as asubstitute for professional medical care. Always follow your healthcare professional's instructions. You have been given the following additional information: Anxiety Reaction Panic Attack(Electronically signed by Dev Gomez 03/13/2021 14:39) Name Value Range Interpretation Code Description Data Krys rce(s) Supporting Document(s) ID Date Data Source [id number] 03/13/2021 12:33:00 PM EDT [facility] 1 Clinical Report - Nurses [facility] Emergency Department [address] [place] [address] Phone #: ext- [phone] 03/13/2021 12:33 Patient: ZAIRE FERGUSON Sex: M : 2000 Age: 20yTRIAGEHistorian: patient.Acuity: LEVEL 4.Chief Complaint: ANXIETY.( Had anxiety attack while in field s and s of hyperventaltion prior to arraival.. NAD on arrival). --12: David Mcneil R.N.12:34 03/13/21. BP: 133/6. MAP: 48. HR: 77. RR: 18. O2 saturation: 97%. Temp: 99.1 F. Pain level now:0/10. --12:37 03/13/21 Oneill, David, R.N.Weight: 72.5 kg stated. Height/Length: 72 [...] no barriers. 2 Clinical Report - Nurses [facility] Emergency Department [address] [place] [address] Phone #: ext- [phone] 03/13/2021 12:33 Patient: [...] RR: 16. O2 saturation: 99%. --12:58 4/27/21 [place] [facility] Side rails up. Bed placed in lowest position. --13:17 03/13/21 David Mcneil R.N.DISPOSITION / DISCHARGE 13:14 03/13/21. BP: 127/85. MAP: 99. HR: 83. RR: 16. O2 saturation: 99%. Temp: 98.1 F. Pain level now: 11/26. 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 Discharge instructions provided and reviewed with the patient. Patient verbalized understanding. Written instructions provided in German. The patient was discharged by the physician. He was discharged home. He left ambulatory and via private vehicle. Patient driving. --13:17 03/13/21 David Mcneil R.N. Departure time: 13:17 03/13/2021. --13:17 03/13/21 David Mcneil R.N.Locked/Released at 03/13/2021 13:17 by David Mcneil R.N. 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 2 Clinical Report - Physicians/Mid Levels [facility] Emergency Department [address] [place] [address] Phone #: ext- [phone] 03/13/2021 12:33 Patient: ZAIRE FERGUSON Sex: M [...] patient. Follow-up with: [facility] Respective Team [facility] [place], , , [address] [facility] [place], , [place], [address] 3 Clinical Report - Physicians/Mid Levels [facility] Emergency Department [address] [place] [address] Phone #: ext- [phone] 03/13/2021 12:33 Patient: ZAIRE FERGUSON Sex: M : 2000 Age: 20y Follow up in two days if not better.(Electronically signed by Dev Gomez 03/13/2021 14:39) Name Value Range Interpretation Code Description Data Krys rce(s) Supporting Document(s) ID Date Data Source [id number] 03/13/2021 01:10:00 PM EDT [facility] Name Value Range Interpretation Code Description Data Krys rce(s) Supporting Document(s) URINALYSIS [facility] URINALYSIS SOURCE R [facility] COLOR yellow NORMAL: Yellow [facility]ital CLARITY clear NORMAL: Clear [facility] Specific gravity of Urine by Test strip 1.015 1.001 - 1.030 [facility] pH 8 5 - 9 [facility] Glucose [Mass/volume] in Urine by Test strip NORM NORMAL: [facility] Bilirubin.total [Presence] in Urine by Test strip NEG NORMAL: Negative [facility] Ketones [Presence] in Urine by Test strip NEG NORMAL: Negative [facility] Protein [Mass/volume] in Urine by Test strip NEG NORMAL: Negat [facility] Nitrite [Presence] in Urine by Test strip NEG NORMAL: Negative [facility] BLOOD NEG NORMAL: Negative [facility] Leukocyte esterase [Presence] in Urine by Test strip NEG SANTHOSH L: Negative [facility] Urobilinogen [Mass/volume] in Urine by Test strip NOR less manfred n 1.0 mg/dL [facility] MICROSCOPIC Not Indicate [facility]sp[facility] Procedure Social History No Information
== END 2021-09-03 20:25 | disposition left against medical advice (07) ==
LOC: M ED 18:18
DX: Z53.21 Procedure and treatment not carried out due to patient leaving prior to being seen by health care provider (principal)

== ENCOUNTER 2022-10-25 21:44 | Inpatient (IN) | payer OTHER ==
[~2022-10-25] VITALS: Ht 182.9 cm; Wt 96.0 kg
[2022-10-25] MEDS ORDERED: CHARCOAL ACTIVATED LIQUID 25 GM/120 ML BTL PO ONE (22:00)
[2022-10-25 22:13] LABS: BASO # 0.1 10^3/uL (0.0-0.2); BASO % 0.7 % (0.0-1.0); EOS # 0.1 10^3/uL (0.0-0.5); HEMATOCRIT 39.9 % (42.0-52.0); HEMOGLOBIN 13.4 g/dl (13.5-17.5); LYMPH # 4.3 10^3/uL (1.5-5.0); LYMPH % 51.9 % (24.0-44.0); MEAN CORPUSCULAR HEMOGLOBIN 27.5 pg (27.0-33.0); MEAN CORPUSCULAR HGB CONC 33.6 g/dl (32.0-36.5); MEAN CORPUSCULAR VOLUME 81.9 fl (80.0-96.0); MONO # 0.6 10^3/uL (0.0-0.8); MONO % 7.4 % (2.0-8.0); NEUTROPHILS # 3.3 10^3/uL (1.5-8.5); NEUTROPHILS % 38.8 % (36.0-66.0); PLATELET COUNT, AUTOMATED 264 10^3/uL (150-450); RED BLOOD COUNT 4.87 10^6/uL (4.30-6.10); WHITE BLOOD COUNT 8.4 10^3/uL (4.0-10.0)
[2022-10-25 22:20] LABS: ABG BASE EXCESS -3.1 (-2.0-2.0); ABG HCO3 21.6 MEQ/L (22.0-26.0); ABG O2 SATURATION 98.1 % (95.0-99.0); ABG PARTIAL PRESSURE CO2 37.4 mmHg (35.0-45.0); ABG PARTIAL PRESSURE O2 115.1 mmHg (75.0-100.0); ABG TOTAL CO2 22.7 MEQ/L (22.0-29.0); ABG pH (ARTERIAL) 7.379 UNITS (7.350-7.450)
[2022-10-25 22:41] LABS: ETHYL ALCOHOL (ETHANOL) 0.132 % (0.000-0.010)
[2022-10-25 22:42] LABS: ACETAMINOPHEN LEVEL < 2.0 UG/ML (10.0-20.0); CPK CREATINE PHOSPHOKINASE 142 U/L (46-171)
[2022-10-25 22:43] LABS: ALKALINE PHOSPHATASE 110 U/L (46-116); ALT/SGPT 22 U/L (7.0-40); AST/SGOT 21 U/L (<34); BILIRUBIN,DIRECT < 0.1 MG/DL (<0.4); BILIRUBIN,TOTAL 0.2 MG/DL (0.3-1.2); BLOOD UREA NITROGEN 16 MG/DL (9-23); CALCIUM LEVEL 8.7 MG/DL (8.5-10.1); CARBON DIOXIDE LEVEL 19 MMOL/L (20-31); CHLORIDE LEVEL 106 MMOL/L (98-107); CREATININE FOR GFR 1.07 MG/DL (0.70-1.30); GLOMERULAR FILTRATION RATE > 60.0 (>60); GLUCOSE, FASTING 132 MG/DL (60-100); POTASSIUM SERUM 3.3 MMOL/L (3.5-5.1); SALICYLATE LEVEL < 3.0 MG/DL (<30); SODIUM LEVEL 141 MMOL/L (136-145); TOTAL PROTEIN 7.2 G/DL (5.7-8.2)
[2022-10-25 22:45] LABS: THYROID STIMULATING HORMONE 3.186 uIU/ML (0.55-4.78)
[2022-10-25] MEDS ORDERED: POTASSIUM CHLORIDE 10MEQ SR TABLET PO ONE (22:55)
[2022-10-25 23:40] LABS: APPEARANCE, URINE MANUAL CLEAR (CLEAR); BILIRUBIN, URINE MANUAL NEGATIVE (NEGATIVE); BLOOD URINE MANUAL NEGATIVE (NEGATIVE); COLOR, URINE MANUAL LT YELLOW (YELLOW); GLUCOSE, URINE (UA) MANUAL NEGATIVE (NEGATIVE); KETONE, URINE MANUAL NEGATIVE (NEGATIVE); LEUKOCYTE ESTERASE, URINE MAN NEGATIVE (NEGATIVE); NITRITE, URINE MANUAL NEGATIVE (NEGATIVE); PROTEIN, URINE MANUAL NEGATIVE (NEGATIVE); UROBILINOGEN, URINE MANUAL NORMAL (NORMAL)
[2022-10-25 23:58] LABS: AMPHETAMINES LEVEL URINE NEGATIVE (NEGATIVE); BARBITURATES URINE NEGATIVE (NEGATIVE); BENZODIAZEPINES URINE NEGATIVE (NEGATIVE); CANNABINOIDS URINE NEGATIVE (NEGATIVE); COCAINE METABOLITE URINE NEGATIVE (NEGATIVE); METHADONE URINE NEGATIVE (NEGATIVE); OPIATES URINE NEGATIVE (NEGATIVE); PHENCYCLIDINE URINE NEGATIVE (NEGATIVE)
[2022-10-26] MEDS ORDERED: GABA-1171 PO ×2 (08:10)
[2022-10-26] MEDS ORDERED: HYDR-3363 PO (08:10)
[2022-10-26] MEDS ORDERED: PRAZ2CAP PO (08:10)
[2022-10-26] MEDS ORDERED: HOME MED LIST COMPLETE! XX SCH (08:15)
[2022-10-26 09:13] LABS: RSV AMPLIFICATION NEGATIVE (NEGATIVE)
[2022-10-26] MEDS ORDERED: ACETAMINOPHEN TAB 650MG DOSE (2X325MG) PO PRN (10:20)
[2022-10-26] MEDS ORDERED: LORazepam 2 MG TAB PO PRN (10:20)
[2022-10-26] MEDS ORDERED: traZODone 50 MG TAB PO PRN (10:20)
[2022-10-26] MEDS ORDERED: MOM 30ML SUSPENSION UDC PO PRN (10:20)
[2022-10-26] MEDS ORDERED: MAALOX 30 ML SUSP *UDC PO PRN (10:20)
[2022-10-26] MEDS ORDERED: NICOTINE 21MG/24HR 1 EA TRANSDERMAL TD ONE (10:20)
[2022-10-26 11:17] VITALS: BP 139/66
[2022-10-26] MEDS: GABAPENTIN 100 MG CAP PO SCH (11:51)
[2022-10-26] MEDS: FOLIC ACID 1MG TAB PO SCH (11:51)
[2022-10-26] MEDS: THIAMINE 100 MG TAB PO SCH ×2 (11:52→21:16)
[2022-10-26] MEDS: MULTIVITAMINS/MINERALS THERAP 1 TAB PO SCH (11:52)
[2022-10-26 16:25] VITALS: BP 128/58
[2022-10-26] MEDS ORDERED: GABAPENTIN 100 MG CAP PO SCH (21:00)
[2022-10-26] MEDS ORDERED: PRAZOSIN 1 MG CAP PO SCH (21:00)
[2022-10-27 06:28] VITALS: BP 144/64
[2022-10-27 08:10] VITALS: BP 144/64
[2022-10-27] MEDS: MULTIVITAMINS/MINERALS THERAP 1 TAB PO SCH (08:31)
[2022-10-27] MEDS: FOLIC ACID 1MG TAB PO SCH (08:31)
[2022-10-27] MEDS: GABAPENTIN 100 MG CAP PO SCH ×2 (08:32→20:03)
[2022-10-27] MEDS: THIAMINE 100 MG TAB PO SCH ×2 (08:32→20:03)
[2022-10-27] MEDS: SERTRALINE HCL 50 MG TAB PO SCH (08:32)
[2022-10-27 14:39] LABS: BLOOD UREA NITROGEN 17 MG/DL (9-23); CARBON DIOXIDE LEVEL 24 MMOL/L (20-31); CHLORIDE LEVEL 105 MMOL/L (98-107); CREATININE FOR GFR 0.87 MG/DL (0.70-1.30); GLOMERULAR FILTRATION RATE > 60.0 (>60); GLUCOSE, FASTING 89 MG/DL (60-100); POTASSIUM SERUM 4.1 MMOL/L (3.5-5.1); SODIUM LEVEL 141 MMOL/L (136-145)
[2022-10-27 16:35] VITALS: BP 138/86
[2022-10-27 16:57] VITALS: BP 138/86
[2022-10-27] MEDS: PRAZOSIN 1 MG CAP PO SCH (20:04)
[2022-10-27 22:00] VITALS: BP 152/67
[2022-10-28 06:30] VITALS: BP 138/69
[2022-10-28 06:53] VITALS: BP 138/69
[2022-10-28] MEDS: SERTRALINE HCL 50 MG TAB PO SCH (08:06)
[2022-10-28] MEDS: GABAPENTIN 100 MG CAP PO SCH ×2 (08:06→20:52)
[2022-10-28] MEDS: THIAMINE 100 MG TAB PO SCH ×2 (08:06→20:52)
[2022-10-28] MEDS: FOLIC ACID 1MG TAB PO SCH (08:06)
[2022-10-28] MEDS: MULTIVITAMINS/MINERALS THERAP 1 TAB PO SCH (08:06)
[2022-10-28 14:18] VITALS: BP 156/87
[2022-10-28 19:01] VITALS: BP 149/79
[2022-10-28 20:52] VITALS: BP 149/79
[2022-10-28] MEDS: PRAZOSIN 1 MG CAP PO SCH (20:52)
[2022-10-29 06:12] VITALS: BP 141/86
[2022-10-29] MEDS ORDERED: PRAZ2CAP PO (07:41)
[2022-10-29] MEDS ORDERED: GABA-1171 PO (07:41)
[2022-10-29] MEDS ORDERED: SERT50TA29 PO (07:41)
[2022-10-29] MEDS: GABAPENTIN 100 MG CAP PO SCH (08:54)
[2022-10-29] MEDS: SERTRALINE HCL 50 MG TAB PO SCH (08:54)
== END 2022-10-29 13:07 | disposition home or self-care (01) | DRG 899 ==
LOC: M ED 21:44 → M ED INP 10-26 10:17 → M PSY 10-26 11:04
PROVIDERS: ADMIT Student in an Organized Health Care Education/Training Program; ATTEND Student in an Organized Health Care Education/Training Program
DX: F10.94 Alcohol use, unspecified with alcohol-induced mood disorder (principal); R45.851 Suicidal ideations; F43.9 Reaction to severe stress, unspecified; G47.00 Insomnia, unspecified; F17.290 Nicotine dependence, other tobacco product, uncomplicated; E87.6 Hypokalemia; Z20.822 Contact with and (suspected) exposure to COVID-19; Z91.52 Personal history of nonsuicidal self-harm; Z79.899 Other long term (current) drug therapy